=== PATIENT | male | born 1995 | race American Indian/Alaskan Native ===

== ENCOUNTER 2020-12-20 17:40 | Emergency (ER) | payer OTHER ==
--- NOTE | 2020-12-20 17:54 | Emergency Department Report ---
ED CPR HPI - General Stated Complaint: CARDIAC ARREST Time Seen by Provider: 12/20/20 17:47 Source: EMS Limitations: Altered Mental Status - History of Present Illness Initial Comments: Chief complaint: Cardiac arrest HPI: This is a 25-year-old male without significant past medical history who presents in cardiac arrest. [employer] on scene stated that "he probably needs Narcan". [employer] Operator did admit to marijuana use. When EMS arrived patient was in cardiac arrest. Asystole. No respiratory effort. Patient was intubated. Patient was given 2 doses of epinephrine. Patient was picked up from local hotel. Patient was unresponsive for 10 minutes prior to EMS arrival. EMS performed CPR and provided ACLS resuscitation for 20 minutes prior to ED arrival. Patient lives in [place]. Came to [place] for a libertarian. Friend informed police liaison in emergency department that patient felt ill after smoking weed purchased at a [employer] station. Complaint: found unresponsive Place: other (Hotel room) Initial Findings in the Field: unresponsive, no respirations, other rhythm (Asystole) ROSC in the Field: No Associated Injuries: No Treatments Prior to Arrival: intubation, epinephrine mgs # (2 doses of epinephrine) ED Review of Systems ROS: Stated complaint: CARDIAC ARREST Other details as noted in HPI Comment: Unobtainable due to pts medical conditions (Cardiac arrest unrespo nsive patient) ED Past Medical Hx - Past Medical History Additional medical history: Unable to obtain - Surgical History Additional Surgical History: Unable to obtain - Family History Family history: other (Unable to obtain) - Social History Substance Use Type: Marijuana ED Physical Exam - General Limitations: Other (Unresponsive lifeless cardiac arrest) General appearance: other (Unresponsive lifeless) - Head Head exam: Present: atraumatic, normocephalic - Eye Eye exam: Present: other (Fixed dilated pupils) - ENT ENT exam: Present: other (Blood coming from nose oropharynx) - Neck Neck exam: Present: normal inspection - Respiratory Respiratory exam: Present: other (Equal coarse breath sounds with ventilation) - Cardiovascular Cardiovascular Exam: Present: other (No palpable pulse no auscultated cardiac sounds) - GI/Abdominal GI/Abdominal exam: Present: distended, other (No ecchymoses) - Extremities Exam Extremities exam: Present: other (No deformity of any of the extremities) - Neurological Exam Neurological exam: Present: other (Lifeless no spontaneous movement) - Psychiatric Psychiatric exam: Present: other (Lifeless no spontaneous movement) - Skin Skin exam: Present: pallor ED Course - Reevaluation(s) Reevaluation #1: 12/20/20 19:40 I spoke with [place] police liaison who is attempting to locate 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 No party plan sales unit sales leader left and did not return. Will need next of kin contact information for notification. ED Medical Decision Making - Medical Decision Making Cardiac arrest: Asystole upon EMS arrival. ACLS resuscitation was continued in the emergency department. Patient received an additional 2 doses of epinephrine as well as IV naloxone, IV calcium chloride, IV sodium bicarbonate. Chest compressions were continued in emergency department. Asystole persisted without palpable pulse or return of spontaneous circulation. Time of 1745. Critical care attestation.: If time is entered above; I have spent that time in minutes in the direct care of this critically ill patient, excluding procedure time. ED Disposition Clinical Impression: Cardiac arrest Disposition: 20 Is pt being admited?: No Does the pt Need Aspirin: No Time of Disposition: 17:45
== END 2020-12-20 20:00 ==
LOC: EDBD → ED 17:40
DX: I46.9 Cardiac arrest, cause unspecified (principal); F12.90 Cannabis use, unspecified, uncomplicated
CPT/HCPCS: 92950; 99285